=== PATIENT | male | born 1985 | race Caucasian/White ===

== ENCOUNTER 2024-03-08 08:46 | Emergency (ER) | payer OTHER, SELFPAY ==
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
[2024-03-08 08:58] VITALS: BP 122/77; PULSE 85; RESP 18; TEMP 36.6; O2SAT 99
[2024-03-08] MEDS: LIDOCAINE 2% INJ SDV 5ML 10 ML INJ (09:10)
== END 2024-03-08 09:35 | disposition home or self-care (01) ==
PROVIDERS: Emergency Provider Emergency Medicine
DX: S01.112A Laceration without foreign body of left eyelid and periocular area, initial encounter (principal); Y04.2XXA Assault by strike against or bumped into by another person, initial encounter
CPT/HCPCS: 12013; 99283